=== PATIENT | female | born 2000 | race Caucasian/White ===

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

== ENCOUNTER 2022-10-08 01:15 | Emergency (ER) | payer OTHER ==
[~2022-10-08] VITALS: Ht 162.6 cm; Wt 63.5 kg
[~2022-10-08 01:15] MED LIST: AMOX-430 PO
--- NOTE | 2022-10-08 01:48 | NUR ---
BIBMOTHER C/O FLULIKE SYMPTOMS X3 DAYS. PT A/OX4. TOLERATING R/A WELL WITH NO RESP DISTRESS. SAFETY MEASURES IN PLACE.
--- NOTE | 2022-10-08 01:53 | NUR ---
DR. CARLOS RICKS AT PT'S BEDSIDE
--- NOTE | 2022-10-08 02:08 | NUR ---
COVID ANTIGEN AND INFLUENZA SWAB COLLECTED AND SENT TO LAB
[2022-10-08] MEDS ORDERED: AZIT250T13 PO (04:00)
--- NOTE | 2022-10-08 04:20 | NUR ---
Patient discharged to home in stable condition. RX Written and verbal after care instructions given. Patient verbalizes understanding of instruction.
[2022-10-08 04:22] VITALS: BP 135/85
== END 2022-10-08 04:22 | disposition home or self-care (01) ==
LOC: ER 01:17
DX: J01.90 Acute sinusitis, unspecified (principal); R03.0 Elevated blood-pressure reading, without diagnosis of hypertension
CPT/HCPCS: 99283; 87426; 87804; C9803